=== PATIENT | male | born 1935 | race Caucasian/White ===

== ENCOUNTER 2016-06-19 17:11 | Emergency (ER) | payer MEDICARE, OTHER ==
[~2016-06-19] VITALS: Ht 175.3 cm; Wt 80.0 kg
[~2016-06-19 17:11] MED LIST: AGGR20025 PO; COMMODE 3:1; GLUCTAB PO; MULT1TAB PO; PRIN10TA PO; PROT40TA PO; SHOWER/TUB CHAIR LG; WHEELCHAIR RENTAL
[2016-06-19 17:14] VITALS: BP 139/66; PULSE 70; RESP 24; TEMP 97.7; O2SAT 98
--- NOTE | 2016-06-19 20:38 | PD ---
HPI Chief Complaint: Diabetic Time Seen by Provider: 20:37 Travel History International Travel<30 days: No Contact w/Intl Traveler<30days: No Traveled to known affect area: No History of Present Illness HPI 81-year-old male with history of with a history of insulin-dependent diabetes, hypertension, CVA, GERD presents to the emergency department for evaluation of hyperglycemia. The patient states that he has noticed his sugar has been rising over the past 3 days. States that this morning when he woke up it was in the 300s and this afternoon he was in the 400s. States that he took 35 units of NovoLog 70/30 at 4 PM and since then his sugar has been coming down however was still high. States that he called his doctor and was told to come to the emergency department. He denies any complaints. Denies any chest pain, shortness of breath, abdominal pain, nausea, vomiting, diarrhea, lightheadedness , dizziness, cough or cold symptoms. The patient states that about 3 weeks ago his PCP dropped him down from 40 units of NovoLog in the a.m. and 30 units in the p.m. to now taking 30 units in the a.m. and 20 units in the PM. States he thinks his insulin dose is too low which is why his sugars are high. No other complaints. PCP is Dr. Velazquez. [facility] Past Medical History Asthma: Yes Autoimmune Disease: No Blood Disorders: No Anxiety: No Depression: No Heart Rhythm Problems: No Cancer: No Cardiovascular Problems: Yes High Cholesterol: No Chemotherapy: No Chest Pain: No Congestive Heart Failure: No COPD: No Cerebrovascular Accident: Yes (2012) Diabetes: Yes Diminished Hearing: Yes ([place]) Endocrine: Yes GERD: No Glaucoma: No Genitourinary: No Hepatitis: No Hiatal Hernia: No Hypertension: Yes Immune Disorder: No Kidney Stones: No Musculoskeletal: Yes (LEFT SIDED WEAKNESS ) Neurologic: Yes Psychiatric: No Reproductive: No Respiratory: Yes (ASTHMA) Radiation Therapy: No Renal Failure: No Sickle Cell Disease: No Sleep Apnea: No Thyroid Disease: No Ulcer: No Past Surgical History Abdominal Surgery: Yes (Cholecystectomy) AICD: No Appendectomy: Yes Arteriovenous Shunt: No Cardiac Surgery: No Cholecystectomy: Yes Ear Surgery: No Endocrine Surgery: No Eye Surgery: Yes (Retina surgery) Genitourinary Surgery: No Insulin Pump: No Joint Replacement: No Oral Surgery: No Pacemaker: No Thoracic Surgery: No Other Surgery: Yes Social History Alcohol Use: No Tobacco Use: No Substance Use: No Allergies-Medications (Allergen,Severity, Reaction): Coded Allergies: Gabapentin (Verified Allergy, Severe, PT STATES IT WAS SO LONG AGO HE DOES NOT REMEMBER, 06/19/16) Horse Serum Proteins (Verified Allergy, Severe, PNEUMOTHORAX, 06/19/16) Hydrocodone (Verified Allergy, Severe, STOMACH CRAMPING, DIAPHORESIS, NAUSEA, 06/19/16) Reported Meds & Prescriptions Reported Meds & Active Scripts Active Aggrenox (Dipyridamole/Aspirin) 25 Mg/200 Mg Cap 1 Cap PO BID Protonix (Pantoprazole Sodium) 40 Mg Tab 40 Mg PO DAILY Centrum Silver Adult 50+ (Multiple Vitamins W/ Minerals) 1 Tab Tab 1 Tab PO DAILY Prinivil (Lisinopril) 10 Mg Tab 10 Mg PO DAILY Wheelchair Rental Device 1 Ea Shower/Tub Chair Lg Device 1 Ea Commode 3:1 Device 1 Ea Reported Metformin Hcl (Metformin HCl) 500 Mg Tab 500 Mg PO BID Review of Systems Except as stated in HPI: all other systems reviewed are Neg Physical Exam Narrative GENERAL: Well-nourished and well-developed pleasant elderly male patient in no acute distress who is nontoxic appearing. SKIN: Warm and dry. HEAD: Normocephalic and atraumatic. EYES: No injection, drainage, or hyphema noted. PERRLA. EOMI. ENT: No nasal drainage noted. Oropharynx is clear. NECK: Supple and the trachea is midline. CARDIOVASCULAR: Regular rate and rhythm. RESPIRATORY: Breath sounds are equal bilaterally with no accessory muscle use, wheezing, rhonchi, or crackles. GASTROINTESTINAL: Abdomen is soft, non-tender, and nondistended. MUSCULOSKELETAL: No obvious deformities, swelling, cyanosis, or ecchymosis is present throughout the upper and lower extremities. Patient has full range of motion without any signs of neurovascular compromise. NEUROLOGICAL: Awake, alert, and oriented. Normal speech and gait. Cranial nerves are grossly intact. Data Data Last Documented VS Vital Signs Date Time Temp Pulse Resp B/P Pulse Ox O2 Delivery O2 Flow Rate FiO2 06/19/16 17:14 97.7 70 24 139/66 98 Orders Complete Blood Count With Diff (06/19/16 20:35) Comprehensive Metabolic Panel (06/19/16 20:35) Urinalysis - C+S If Indicated (06/19/16 20:35) Iv Access Insert/Monitor (06/19/16 20:35) Ecg Monitoring (06/19/16 20:35) Oximetry (06/19/16 20:35) MDM Medical Decision Making Medical Screen Exam Complete: Yes Emergency Medical Condition: Yes Differential Diagnosis Hyperglycemia versus diabetes versus electrolyte abnormality Narrative Course 81-year-old male presents to the emergency department for evaluation of hyperglycemia. Patient is afebrile, vital signs are stable. Fingerstick glucose is 268 here in the ED. IV access is obtained, labs been drawn and sent. Patient is placed on cardiac telemetry and pulse oximetry monitoring. Patient signed out to Dr. Mitatl who will assume care of the patient and disposition. Marcie Dumont Jun 19, 2016 20:38
--- NOTE | 2016-06-19 20:58 | PD ---
Data Data Last Documented VS Vital Signs Date Time Temp Pulse Resp B/P Pulse Ox O2 Delivery O2 Flow Rate FiO2 06/19/16 22:23 72 18 139/70 95 Room Air 06/19/16 17:14 97.7 Orders Complete Blood Count With Diff (06/19/16 20:35) Comprehensive Metabolic Panel (06/19/16 20:35) Urinalysis - C+S If Indicated (06/19/16 20:35) Iv Access Insert/Monitor (06/19/16 20:35) Ecg Monitoring (06/19/16 20:35) Oximetry (06/19/16 20:35) Urine Culture (06/19/16 20:49) Labs Laboratory Tests Test 06/19/16 06/19/16 20:49 21:25 Urine Color YELLOW Urine Turbidity HAZY Urine pH 5.0 Urine Specific [place] 1.017 Urine Protein TRACE mg/dL Urine Glucose (UA) 300 mg/dL Urine Ketones NEG mg/dL Urine Occult Blood NEG Urine Nitrite NEG Urine Bilirubin NEG Urine Urobilinogen LESS THAN 2.0 MG/DL Urine Leukocyte Esterase LARGE Urine RBC 2 /hpf Urine WBC 142 /hpf Urine WBC Clumps RARE Urine Squamous Epithelial <1 /hpf Cells Urine Bacteria MANY /hpf Urine Mucus FEW /lpf Microscopic Urinalysis Comment CULTURE INDICATED White Blood Count 13.6 TH/MM3 Red Blood Count 4.23 MIL/MM3 Hemoglobin 13.0 GM/DL Hematocrit 38.4 % Mean Corpuscular Volume 90.7 FL Mean Corpuscular Hemoglobin 30.8 PG Mean Corpuscular Hemoglobin 34.0 % Concent Red Cell Distribution Width 13.6 % Platelet Count 236 TH/MM3 Mean Platelet Volume 7.4 FL Neutrophils (%) (Auto) 68.8 % Lymphocytes (%) (Auto) 17.4 % Monocytes (%) (Auto) 9.7 % Eosinophils (%) (Auto) 3.5 % Basophils (%) (Auto) 0.6 % Neutrophils # (Auto) 9.4 TH/MM3 Lymphocytes # (Auto) 2.4 TH/MM3 Monocytes # (Auto) 1.3 TH/MM3 Eosinophils # (Auto) 0.5 TH/MM3 Basophils # (Auto) 0.1 TH/MM3 CBC Comment AUTO DIFF Differential Total Cells 100 Counted Neutrophils % (Manual) 57 % Band Neutrophils % 7 % Lymphocytes % 16 % Monocytes % 13 % Eosinophils % 6 % Basophils % 1 % Neutrophils # (Manual) 8.7 TH/MM3 Differential Comment FINAL DIFF MANUAL Platelet Estimate NORMAL Platelet Morphology Comment NORMAL Sodium Level 140 MEQ/L Potassium Level 4.7 MEQ/L Chloride Level 103 MEQ/L Carbon Dioxide Level 28.4 MEQ/L Anion Gap 9 MEQ/L Blood Urea Nitrogen 18 MG/DL Creatinine 0.82 MG/DL Estimat Glomerular Filtration 91 ML/MIN Rate Random Glucose 69 MG/DL Calcium Level 9.5 MG/DL Total Bilirubin 0.5 MG/DL Aspartate Amino Transf 31 U/L (AST/SGOT) Alanine Aminotransferase 27 U/L (ALT/SGPT) Alkaline Phosphatase 66 U/L Total Protein 7.6 GM/DL Albumin 3.7 GM/DL MDM Supervised Visit with DANIS: Yes Narrative Course Patient care assumed by me from Radha Dumont PAC at 2100. This is a 81-year- old male who had a recent lowering of his dose of insulin presents to emergency department with a symptomatically hyperglycemia. Labs are pending. Likely discharged home. Patient's blood sugar on CMP was in the low 60s. He did tolerate by mouth and a repeat sugar after meal was in the high 90s. The patient feels well and has no complaints would like to go home. His only significant workup finding was a positive UA for UTI. Patient states he recently had a urinary tract infection but is finished a course of antibiotics some time ago. He cannot remember what case of anabiotic's he was on. He will be placed on Keflex. The prescription was called into his pharmacy on [facility]. He is stable for discharge at this time. He'll follow-up with Dr. Simpson by phone in the morning. Diagnosis Primary Impression: Hyperglycemia due to type 1 diabetes mellitus Additional Instruction: Call your primary care provider in the morning. Disposition: 01 DISCHARGE HOME Condition: Stable Chan Mittal MD Jun 19, 2016 20:57
[2016-06-19 21:24] LABS: BACTERIA, URINE MANY /hpf; BLOOD, URINE NEG (NEG); COMMENT (UR) CULTURE INDICATED; CULTURE IF INDICATED CULTURE INDICATED; GLUCOSE,URINE 300 mg/dL (NEG); KETONE, URINE NEG (NEG); MUCUS URINE FEW /lpf (OCC); NITRITE,URINE NEG (NEG); SQUAMOUS EPITHELIAL CELL URINE <1 /hpf (0-5); URINE COLOR YELLOW (YELLW/STRAW)
[2016-06-19 21:31] VITALS: O2SAT 96
[2016-06-19 21:45] LABS: AUTOMATED NEUTROPHIL # 9.4 TH/MM3 (1.8-7.7); BASOPHIL # 0.1 TH/MM3 (0-0.2); BASOPHIL % 0.6 % (0.0-2.0); EOSINOPHIL # 0.5 TH/MM3 (0-0.4); EOSINOPHIL % 3.5 % (0.0-4.0); HEMATOCRIT 38.4 % (39.0-51.0); LYMPH % 17.4 % (9.0-44.0); LYMPHOCYTE # 2.4 TH/MM3 (1.0-4.8); MEAN CELL VOLUME 90.7 FL (80.0-100.0); MEAN CORPUSCULAR HEMOGLOBIN 30.8 PG (27.0-34.0); MONO % 9.7 % (0.0-8.0); NEUT % 68.8 % (16.0-70.0); PLATELET COUNT 236 TH/MM3 (150-450); RED BLOOD COUNT 4.23 MIL/MM3 (4.50-5.90); RED CELL DISTRIBUTION WIDTH 13.6 % (11.6-17.2); WHITE BLOOD COUNT 13.6 TH/MM3 (4.0-11.0)
[2016-06-19 21:49] LABS: HEMO FLAGS AUTO DIFF
[2016-06-19 22:01] LABS: ANION GAP 9 MEQ/L (5-15); AST (GOT) 31 U/L (15-37); BICARBONATE 28.4 MEQ/L (21.0-32.0); BLOOD UREA NITROGEN 18 MG/DL (7-18); CHLORIDE 103 MEQ/L (98-107); GLOMERULAR FILTRATION RATE 91 ML/MIN (>89); SODIUM (NA) 140 MEQ/L (136-145)
[2016-06-19 22:02] LABS: POTASSIUM 4.7 MEQ/L (3.5-5.1)
[2016-06-19 22:03] LABS: ALKALINE PHOSPHATASE 66 U/L (45-117); ALT (GPT) 27 U/L (12-78); TOTAL BILIRUBIN ADULT 0.5 MG/DL (0.2-1.0)
[2016-06-19 22:19] LABS: BANDS 7 % (0-6); BASOPHILS 1 % (0-2); EOSINOPHILS 6 % (0-4); NEUTROPHIL # MANUAL DIFF 8.7 TH/MM3 (1.8-7.7); PLATELET ESTIMATE SMEAR NORMAL (NORMAL); POLYS (SEG NEUTROPHILS) 57 % (16-70); SCAN/DIFF FINAL DIFF MANUAL; WBC DIFF SAMPLE 100
[2016-06-19 22:20] LABS: PLATELET MORPHOLOGY NORMAL (NORMAL)
[2016-06-19 22:23] VITALS: BP 139/70; PULSE 72; RESP 18; O2SAT 95
[2016-08-24] MEDS ORDERED: PANT40TA3 PO (10:04)
[2016-08-24] MEDS ORDERED: OLOP1DRO EACH EYE (10:04)
[2016-08-24] MEDS ORDERED: ONDA1TAB17 PO (10:04)
[2016-08-24] MEDS ORDERED: METF1000 PO (10:04)
[2016-08-24] MEDS ORDERED: PROM25VI3 (10:04)
[2016-08-24] MEDS ORDERED: COMB0.2S EACH EYE (10:04)
[2016-08-24] MEDS ORDERED: OXYC1TAB63 PO (10:04)
[2016-08-24] MEDS ORDERED: NOVO7030P2 SQ (10:04)
[2016-08-24] MEDS ORDERED: TRUS2SOL EACH EYE (10:04)
[2016-08-24] MEDS ORDERED: LISI10TA3 PO (10:04)
== END 2016-06-19 23:44 | disposition home or self-care (01) ==
LOC: NEPD 17:11
DX: E10.65 Type 1 diabetes mellitus with hyperglycemia (principal); N39.0 Urinary tract infection, site not specified; B96.20 Unspecified Escherichia coli [E. coli] as the cause of diseases classified elsewhere; Z79.4 Long term (current) use of insulin
CPT/HCPCS: 80053; 81001; 85007; 85027; 87077; 87086; 87186; 99284

== ENCOUNTER → 2016-09-13 | Outpatient (CLI) | payer MEDICARE, OTHER ==
[~2016-09-13] MED LIST changes: +ACET-822 PO; -AGGR20025 PO; +CENTCHW3 PO; -COMMODE 3:1; -GLUCTAB PO; +INSU1.2I SQ; +LISI10TA3 PO; +METF1000 PO; -MULT1TAB PO; +NOVOLOGMXP SQ; +NOVOLOGP2 SQ; +PANT40TA3 PO; -PRIN10TA PO; -PROT40TA PO; -SHOWER/TUB CHAIR LG; -WHEELCHAIR RENTAL
[2016-09-13 08:35] LABS: HEMATOCRIT 39.1 % (39.0-51.0); MEAN CELL VOLUME 92.4 FL (80.0-100.0); MEAN CORPUSCULAR HEMOGLOBIN 30.5 PG (27.0-34.0); MEAN CORPUSCULAR HGB CONC 33.1 % (32.0-36.0); PLATELET COUNT 255 TH/MM3 (150-450); RED BLOOD COUNT 4.23 MIL/MM3 (4.50-5.90); RED CELL DISTRIBUTION WIDTH 13.3 % (11.6-17.2); REVIEW FLAG FINAL; WHITE BLOOD COUNT 8.4 TH/MM3 (4.0-11.0)
[2016-09-13 08:49] LABS: APTT (PATIENT) 25.5 SEC (24.3-30.1); PROTHROMBIN TIME - PATIENT 10.8 SEC (9.8-11.6)
[2016-09-13 09:01] LABS: ANION GAP 6 MEQ/L (5-15); AST (GOT) 13 U/L (15-37); BICARBONATE 27.6 MEQ/L (21.0-32.0); BLOOD UREA NITROGEN 21 MG/DL (7-18); CHLORIDE 108 MEQ/L (98-107); GLOMERULAR FILTRATION RATE 114 ML/MIN (>89); GLUCOSE,FASTING 79 MG/DL (74-99); POTASSIUM 3.8 MEQ/L (3.5-5.1); SODIUM (NA) 142 MEQ/L (136-145)
[2016-09-13 09:05] LABS: ALKALINE PHOSPHATASE 49 U/L (45-117); ALT (GPT) 20 U/L (12-78); TOTAL BILIRUBIN ADULT 0.6 MG/DL (0.2-1.0)
--- NOTE | 2016-09-13 09:52 | RADRPT ---
EXAM DATE/TIME: 09/13/2016 09:17 [place] COMPARISON: WRIST LEFT COMPLETE ([id number]), May 17, 2013, 17:49. INDICATIONS : Evaluate for pneumothorax, pneumonia or cummunicable disease pre low back surgery MEDICAL HISTORY : Hypertension. SURGICAL HISTORY : None. ENCOUNTER: Initial ACUITY: 1 day PAIN SCORE: 0/10 LOCATION: Bilateral chest FINDINGS: PA and lateral views of the chest demonstrate the lungs to be symmetrically aerated without evidence of mass, infiltrate or effusion. The cardiomediastinal contours are unremarkable. Osseous structure s demonstrate degenerative changes in the shoulders bilaterally. CONCLUSION: 1. No acute cardiopulmonary findings. Rom Estrada MD on September 13, 2016 at 9:49 Board Certified Radiologist. This report was verified electronically.
--- NOTE | 2016-09-13 11:41 | EKG ---
Date Performed: 09/13/2016 Time Performed: 08:23:11 PTAGE: 81 years EKG: Sinus rhythm RIGHT BUNDLE BRANCH BLOCK ABNORMAL ECG NO PREVIOUS TRACING DOCTOR: Grady Etienne Interpretating Date/Time 09/13/2016 11:39:48
== END ==
LOC: CPRE 07:57
PROVIDERS: ATTEND Neurological Surgery
DX: Z01.810 Encounter for preprocedural cardiovascular examination (principal); Z01.811 Encounter for preprocedural respiratory examination; Z01.812 Encounter for preprocedural laboratory examination; Z01.818 Encounter for other preprocedural examination; Z79.01 Long term (current) use of anticoagulants; E78.4 Other hyperlipidemia; E11.9 Type 2 diabetes mellitus without complications; M48.06 Spinal stenosis, lumbar region; M54.16 Radiculopathy, lumbar region; M43.16 Spondylolisthesis, lumbar region; I45.10 Unspecified right bundle-branch block
CPT/HCPCS: 36415; 71020; 80053; 85027; 85610; 85730; 93005

== ENCOUNTER 2016-09-24 06:15 | Day surgery (SDC) | payer MEDICARE, OTHER ==
[~2016-09-24] VITALS: Ht 175.3 cm; Wt 86.8 kg
[~2016-09-24 06:15] MED LIST changes: -INSU1.2I SQ; -NOVOLOGP2 SQ
[2016-09-24] MEDS ORDERED: CHLORHEXIDINE GLUCONATE 2 % 1 PACK (2 CLOTHS) TOPICAL PRN (06:45)
[2016-09-24] MEDS ORDERED: POVIDONE IODINE 5% (ANTISEPSIS KIT) 4 APPLICATIONS EACH NARE PRN (06:45)
[2016-09-24] MEDS ORDERED: INSULIN HUMAN REGULAR 1,000 UNITS/10 ML VIAL SQ PRN (06:45)
[2016-09-24] MEDS ORDERED: LACTATED RINGER'S 1000 ML IV PRN (06:45)
[2016-09-24] MEDS ORDERED: METOPROLOL TARTRATE 25 MG TAB PO PRN (06:45)
[2016-09-24] MEDS ORDERED: SODIUM CHLORID 0.9% 500 ML IV PRN (06:45)
[2016-09-24] MEDS ORDERED: LACTATED RINGER'S 1000 ML INJ 1,000 ML IV SCH (07:00)
[2016-09-24] MEDS ORDERED: ceFAZolin 1,000 MG/NS 100 ML IV SCH ×2 (07:00)
[2016-09-24] MEDS ORDERED: INSU1.2I SQ (07:16)
[2016-09-24 07:18] VITALS: BP 162/79; PULSE 83; RESP 16; TEMP 98.1; O2SAT 97
[2016-09-24] MEDS ORDERED: GELFOAM SIZE 100 ONE (07:24)
[2016-09-24] MEDS ORDERED: THROMBIN (TOPICAL) 5,000 UNIT VIAL ONE (07:24)
[2016-09-24] MEDS ORDERED: GENTAMICIN SULFATE 80 MG/2 ML VIAL ONE (07:25)
[2016-09-24] MEDS ORDERED: LIDOCAINE 1%/EPINEPHrine 1:100,000 SOLN 20 ML VIAL ONE (07:25)
== END 2016-09-24 08:41 | disposition home or self-care (01) ==
LOC: UNDOADMIN 06:15 → HSDI 06:15 → HSDC 06:15 → HSDI 06:15 → EDSTATUS 08:30 → HSDC 08:41 → UNDODISIN 08:41
PROVIDERS: ATTEND Neurological Surgery
DX: M48.06 Spinal stenosis, lumbar region (principal); M54.16 Radiculopathy, lumbar region; M43.16 Spondylolisthesis, lumbar region; Z53.9 Procedure and treatment not carried out, unspecified reason; R21 Rash and other nonspecific skin eruption; E78.4 Other hyperlipidemia; I15.0 Renovascular hypertension; E11.9 Type 2 diabetes mellitus without complications; Z01.811 Encounter for preprocedural respiratory examination; Z01.812 Encounter for preprocedural laboratory examination; Z01.818 Encounter for other preprocedural examination; Z79.01 Long term (current) use of anticoagulants
CPT/HCPCS: 86850; 86900; 86901; G0463; 99211; J1580